=== PATIENT | female | born 1935 | race Caucasian/White ===

== ENCOUNTER 2017-04-14 12:08 | Emergency (ER) | payer MEDICARE ==
[~2017-04-14] VITALS: Ht 175.3 cm; Wt 51.0 kg
[~2017-04-14 12:08] MED LIST: ATOR20TA42 PO; CLON.5 PO; ENOX40P SQ; LEVO88TA2 PO; LORTA5 PO; METO50TA PO; OMEP20CA5 PO; PACE200T4 PO; WARF2TAB PO
[2017-04-14 12:13] VITALS: BP 134/63; PULSE 58; RESP 18; TEMP 98.8; O2SAT 92
[2017-04-14] MEDS ORDERED: WARF-58 PO (12:37)
[2017-04-14] MEDS ORDERED: AMIO200T PO (12:37)
[2017-04-14] MEDS ORDERED: WARF4TAB51 PO (12:37)
[2017-04-14] MEDS ORDERED: CLON.5 PO (12:37)
[2017-04-14] MEDS ORDERED: PRIL20TA2 PO (12:37)
[2017-04-14] MEDS ORDERED: LEVO88TA2 PO (12:37)
[2017-04-14] MEDS ORDERED: METO50TA PO (12:37)
[2017-04-14] MEDS ORDERED: HYDR-3516 PO (12:37)
[2017-04-14] MEDS ORDERED: ATOR20TA15 PO (12:37)
[2017-04-14] MEDS ORDERED: HYDR-4204 TOPICAL (12:41)
[2017-04-14] MEDS ORDERED: CLIN1CAP6 PO (12:41)
--- NOTE | 2017-04-14 12:42 | PD ---
HPI Chief Complaint: Skin Problem Time Seen by Provider: 12:10 Travel History International Travel<30 days: No Contact w/Intl Traveler<30days: No Traveled to known affect area: No History of Present Illness HPI 82-year-old female with chief complaint of rash to the left posterior back 3 weeks. She reports the rash was originally pruritic. Patient reports in the last several days areas become increasingly more painful, red, warm with small amount of drainage. The patient has history of CVA with left-sided deficit. She is cared for by her . She denies headache, fever, chills, nausea, vomiting, chest pain, shortness breath, abdominal pain. Patient reports in the past she has had dermatitis which was similar to these symptoms with the exception of the pain, redness, drainage. PFSH Past Medical History Arthritis: No Asthma: No Atrial Fibrillation: Yes Heart Rhythm Problems: No Cancer: Yes (SKIN) Cardiovascular Problems: Yes (A-FIB) High Cholesterol: No Chest Pain: No Congestive Heart Failure: No COPD: No Cerebrovascular Accident: Yes (LEFT SIDED WEAKNESS 2004) Diabetes: No GERD: No Genitourinary: No Headaches: No Hepatitis: No Hiatal Hernia: No Hypertension: Yes Kidney Stones: No Musculoskeletal: No Neurologic: Yes (STROKE) Parkinson's Disease: Yes Psychiatric: No Reproductive: No Respiratory: No Migraines: No Myocardial Infarction: No Renal Failure: No Seizures: No Sleep Apnea: No Thyroid Disease: Yes Ulcer: No Menopausal: Yes Past Surgical History Abdominal Surgery: Yes (HERNIA) Appendectomy: No Body Medical Devices: SUSAN IN FEMUR Cardiac Surgery: No Cholecystectomy: No Ear Surgery: No Endocrine Surgery: No Eye Surgery: No Genitourinary Surgery: No Gynecologic Surgery: Yes (HYSTERECTOMY) Hysterectomy: Yes Joint Replacement: Yes Oral Surgery: No Thoracic Surgery: No Other Surgery: Yes (MULTIPLE BREAST CYSTS) Social History Alcohol Use: No Tobacco Use: No Substance Use: No Allergies-Medications (Allergen,Severity, Reaction): Coded Allergies: cephalexin (Unverified Allergy, Intermediate, Rash, 04/14/17) ciprofloxacin (Unverified Allergy, Mild, 04/14/17) Reported Meds & Prescriptions Reported Meds & Active Scripts Active Ala-Vinod Topical (Hydrocortisone (Topical)) 2.5% Cream 1 Applic TOPICAL DIRECTED Clindamycin (Clindamycin HCl) 300 Mg Cap 300 Mg PO TID 7 Days Reported Warfarin 3 Mg Tab 3 Mg PO SAT,SUN Warfarin 2 Mg Tab 2 Mg PO M..,MON Prilosec (Omeprazole Magnesium) 20 Mg Tab 1 Tab PO DAILY Metoprolol Tartrate 50 Mg Tab 50 Mg PO BID Levothyroxine (Levothyroxine Sodium) 88 Mcg Tab 88 Mcg PO DAILY Hydrocodone-Acetaminophen 5-325 mg Tab 1 Tab PO Q4H PRN Atorvastatin (Atorvastatin Calcium) 20 Mg Tab 20 Mg PO HS Klonopin (Clonazepam) 0.5 Mg Tab 0.5 Mg PO HS Amiodarone (Amiodarone HCl) 200 Mg Tab 200 Mg PO DAILY Review of Systems Except as stated in HPI: all other systems reviewed are Neg General / Constitutional: No: Fever Eyes: No: Visual changes HENT: No: Headaches Cardiovascular: No: Chest Pain or Discomfort Respiratory: No: Shortness of Breath Gastrointestinal: No: Abdominal Pain Genitourinary: No: Dysuria Skin: Positive Rash Physical Exam Narrative GENERAL: Well-nourished, well-developed patient. SKIN: Diffuse area of erythema and warmth to the left posterior torso. Area is consistent with cellulitis. There is also areas consistent with dermatitis. HEAD: Normocephalic. EYES: No scleral icterus. No injection or drainage. NECK: Supple, trachea midline. No JVD or lymphadenopathy. CARDIOVASCULAR: Regular rate and rhythm without murmurs, gallops, or rubs. RESPIRATORY: Breath sounds equal bilaterally. No accessory muscle use. GASTROINTESTINAL: Abdomen soft, non-tender, nondistended. MUSCULOSKELETAL: No cyanosis, or edema. Left sided paralysis. Data Data Last Documented VS Vital Signs Date Time Temp Pulse Resp B/P (MAP) Pulse Ox O2 Delivery O2 Flow Rate FiO2 04/14/17 12:13 98.8 58 18 134/63 (86) 92 MDM Medical Decision Making Medical Screen Exam Complete: Yes Emergency Medical Condition: Yes Differential Diagnosis Cellulitis, contact dermatitis, unspecified rash Narrative Course 82-year-old female with chief complaint of rash to the left posterior back 3 weeks. Patient reports over the last several days areas become painful, warm, red with small amount of drainage. On exam patient has what is consistent with contact dermatitis with overlying cellulitis. Patient denies fever or chills. She is nontoxic-appearing. Due to patient's allergies she will be put on clindamycin. She will also be prescribed steroid cream for dermatitis. Patient is advised to follow up with primary doctor on Monday. Return precautions discussed. Patient and family verbalize understanding and agree to plan Diagnosis Primary Impression: Cellulitis Qualified Codes: L03.312 - Cellulitis of back [any part except buttock] Additional Impression: Dermatitis Referrals: Primary Care Physician Additional Instructions: Take the antibiotics as prescribed. Use the cream as prescribed. Cleansed the area daily with soap and water. Follow-up with her primary doctor for recheck on Monday. Return to the emergency department if he developed new or worsening symptoms. Scripts Hydrocortisone (Topical) (Ala-Vinod Topical) 2.5% Cream 1 APPLIC TOPICAL DIRECTED for Inflammation, #1 TUBE 0 Refills Prov: Leticia Day 04/14/17 Clindamycin (Clindamycin) 300 Mg Cap 300 MG PO TID for Infection for 7 Days, CAP 0 Refills Prov: Leticia Day 04/14/17 Disposition: 01 DISCHARGE HOME Condition: Stable Leticia Day Apr 14, 2017 12:42
== END 2017-04-14 12:58 | disposition home or self-care (01) ==
LOC: PHEFT 12:08
DX: L03.312 Cellulitis of back [any part except buttock and flank] (principal); G20 Parkinson's disease; I48.91 Unspecified atrial fibrillation
CPT/HCPCS: 99283

== ENCOUNTER 2017-07-01 12:21 | Emergency (ER) | payer MEDICARE ==
[~2017-07-01] VITALS: Ht 175.3 cm; Wt 60.0 kg
[~2017-07-01 12:21] MED LIST changes: +AMIO200T PO; +ATOR20TA15 PO; -ATOR20TA42 PO; +CLIN300C5 PO; -ENOX40P SQ; +HYDR-3516 PO; +HYDR-4204 TOPICAL; -LORTA5 PO; -OMEP20CA5 PO; -PACE200T4 PO; +PRIL20TA2 PO; +WARF-58 PO; -WARF2TAB PO; +WARF4TAB51 PO
[2017-07-01 12:45] VITALS: BP 222/86; PULSE 52; RESP 16; TEMP 97.6; O2SAT 98
--- NOTE | 2017-07-01 12:56 | PD ---
HPI Chief Complaint: Edema Time Seen by Provider: 12:54 Travel History International Travel<30 days: No Contact w/Intl Traveler<30days: No Traveled to known affect area: No History of Present Illness HPI C/O ABOUT 2 WEEKS WORTH OF SWELLING TO LLE, NOT IMPROVING OR GOING AWAY, PATIENT DENIES FEVER, REDNESS AT THIS TIME...BUT DOES NOTICE A COUGH THAT GETS WORSE WHEN SUPINE, OR FLAT ON HER BACK, AND ALSO FEELS SOB AT THAT TIME, BUT NOT AT ANY OTHER TIME. ...PATIENT IS LARGELY WHEECHAIR BOUND DUE TO STROKE ( ABOUT 7-8YRS AGO) htn, afib on coumadin, PRE[facility] Past Medical History Hx Anticoagulant Therapy: Yes (coumadin) Arthritis: No Asthma: No Atrial Fibrillation: Yes Heart Rhythm Problems: No Cancer: Yes (SKIN) Cardiovascular Problems: Yes (htn not on meds) High Cholesterol: No Chest Pain: No Congestive Heart Failure: No COPD: No Cerebrovascular Accident: Yes (cva) Diabetes: No Diminished Hearing: No GERD: No Genitourinary: No Headaches: No Hepatitis: No Hiatal Hernia: No Hypertension: Yes Kidney Stones: No Musculoskeletal: No Neurologic: Yes (STROKE) Parkinson's Disease: Yes Psychiatric: No Reproductive: No Respiratory: No Integumentary: Yes Immunizations Current: Yes Migraines: No Myocardial Infarction: No Renal Failure: No Seizures: No Sleep Apnea: No Thyroid Disease: Yes Ulcer: No ?: Not Menopausal: Yes Past Surgical History Abdominal Surgery: Yes (HERNIA) Appendectomy: No Body Medical Devices: SUSAN IN FEMUR Cardiac Surgery: No Cholecystectomy: No Ear Surgery: No Endocrine Surgery: No Eye Surgery: No Genitourinary Surgery: No Gynecologic Surgery: Yes (HYSTERECTOMY) Hysterectomy: Yes Joint Replacement: Yes Oral Surgery: No Thoracic Surgery: No Other Surgery: Yes (MULTIPLE BREAST CYSTS LYPOMA) Social History Alcohol Use: No Tobacco Use: No Substance Use: No Allergies-Medications (Allergen,Severity, Reaction): Coded Allergies: cephalexin (Unverified Allergy, Intermediate, Rash, 07/01/17) risedronate sodium (Verified Allergy, Intermediate, loose stools, 07/01/17) ciprofloxacin (Unverified Allergy, Mild, 07/01/17) Reported Meds & Prescriptions Reported Meds & Active Scripts Active Reported Warfarin 2 Mg Tab 2 Mg PO DAILY Prilosec (Omeprazole Magnesium) 20 Mg Tab 1 Tab PO DAILY Metoprolol Tartrate 50 Mg Tab 50 Mg PO BID Levothyroxine (Levothyroxine Sodium) 88 Mcg Tab 88 Mcg PO DAILY Atorvastatin (Atorvastatin Calcium) 20 Mg Tab 20 Mg PO HS Klonopin (Clonazepam) 0.5 Mg Tab 0.5 Mg PO HS Amiodarone (Amiodarone HCl) 200 Mg Tab 200 Mg PO DAILY Review of Systems Except as stated in HPI: all other systems reviewed are Neg General / Constitutional: No: Fever Eyes: No: Visual changes HENT: No: Headaches Cardiovascular: Positive: Edema Respiratory: No: Shortness of Breath Gastrointestinal: No: Abdominal Pain Genitourinary: No: Dysuria Musculoskeletal: No: Pain Skin: No Rash Neurologic: No: Weakness Psychiatric: No: Depression Endocrine: No: Polydipsia Hematologic/Lymphatic: No: Easy Bruising Physical Exam Narrative GENERAL: SKIN: Warm and dry. HEAD: Atraumatic. Normocephalic. EYES: Pupils equal and round. No scleral icterus. No injection or drainage. ENT: No nasal bleeding or discharge. Mucous membranes pink and moist. NECK: Trachea midline. No JVD. CARDIOVASCULAR: Regular rate and rhythm. RESPIRATORY: No accessory muscle use. Clear to auscultation. Breath sounds equal bilaterally. GASTROINTESTINAL: Abdomen soft, non-tender, nondistended. Hepatic and splenic margins not palpable. MUSCULOSKELETAL: Extremities without clubbing, cyanosis, LLE EDEMA 2+, DORSUM OF FOOT HAS MOST NOTICEABLE EDEMA. No obvious deformities. NEUROLOGICAL: Awake and alert. No obvious cranial nerve deficits. Motor grossly within normal limits. Five out of 5 muscle strength in the arms and legs. Normal speech. PSYCHIATRIC: Appropriate mood and affect; insight and judgment normal. Data Data Last Documented VS Vital Signs Date Time Temp Pulse Resp B/P (MAP) Pulse Ox O2 Delivery O2 Flow Rate FiO2 07/01/17 13:42 50 18 207/75 (119) 98 Room Air 07/01/17 12:45 97.6 Orders Orders Foot, Complete ([id number]) (07/01/17 ) Complete Blood Count With Diff (07/01/17 13:13) Comprehensive Metabolic Panel (07/01/17 13:13) B-Type Natriuretic Peptide (07/01/17 13:13) Act Partial Throm Time (Ptt) (07/01/17 13:13) Prothrombin Time / Inr (Pt) (07/01/17 13:13) Troponin I (07/01/17 13:13) Iv Access Insert/Monitor (07/01/17 13:13) Electrocardiogram (07/01/17 13:13) Ecg Monitoring (07/01/17 13:13) Oximetry (07/01/17 13:13) Oxygen Administration (07/01/17 13:13) Chest, Single Ap (07/01/17 13:13) Us Leg Venous Doppler (07/01/17 13:13) Sodium Chloride 0.9% Flush (Ns Flush) (07/01/17 13:15) Clonidine (Catapres) (07/01/17 14:00) Furosemide Inj (Lasix Inj) (07/01/17 14:45) Ed Discharge Order (07/01/17 14:42) Labs Laboratory Tests Test 07/01/17 13:15 White Blood Count 6.5 TH/MM3 Red Blood Count 4.09 MIL/MM3 Hemoglobin 12.1 GM/DL Hematocrit 37.4 % Mean Corpuscular Volume 91.5 FL Mean Corpuscular Hemoglobin 29.6 PG Mean Corpuscular Hemoglobin Concent 32.3 % Red Cell Distribution Width 13.2 % Platelet Count 224 TH/MM3 Mean Platelet Volume 8.0 FL Neutrophils (%) (Auto) 60.8 % Lymphocytes (%) (Auto) 24.1 % Monocytes (%) (Auto) 8.7 % Eosinophils (%) (Auto) 5.8 % Basophils (%) (Auto) 0.6 % Neutrophils # (Auto) 3.9 TH/MM3 Lymphocytes # (Auto) 1.6 TH/MM3 Monocytes # (Auto) 0.6 TH/MM3 Eosinophils # (Auto) 0.4 TH/MM3 Basophils # (Auto) 0.0 TH/MM3 CBC Comment DIFF FINAL Differential Comment Prothrombin Time 24.2 SEC Prothromb Time International Ratio 2.4 RATIO Activated Partial Thromboplast Time 32.4 SEC Blood Urea Nitrogen 38 MG/DL Creatinine 0.96 MG/DL Random Glucose 81 MG/DL Total Protein 6.5 GM/DL Albumin 2.8 GM/DL Calcium Level 8.0 MG/DL Alkaline Phosphatase 74 U/L Aspartate Amino Transf (AST/SGOT) 24 U/L Alanine Aminotransferase (ALT/SGPT) 30 U/L Total Bilirubin 0.3 MG/DL Sodium Level 146 MEQ/L Potassium Level 4.1 MEQ/L Chloride Level 113 MEQ/L Carbon Dioxide Level 26.5 MEQ/L Anion Gap 7 MEQ/L Estimat Glomerular Filtration Rate 55 ML/MIN Troponin I LESS THAN 0.02 NG/ML B-Type Natriuretic Peptide 130 PG/ML MDM Medical Decision Making Medical Screen Exam Complete: Yes Emergency Medical Condition: Yes Medical Record Reviewed: Yes Interpretation(s) EKG: SINUS HOMER 50, FIRST DEGREE AV BLOCK, NONSPECIFIC STT CHANGES, NO STEMI PATTERN Differential Diagnosis DVT V FRACTURE V DISLOCATION V CHF V RENAL FAILURE Narrative Course CHEST XRAY SUGGESTS CARDIOMEGALY, BUT NO PULMONARY EDEMA/PNA/PTX....ULTRS NEG FOR DVT....XRAY DID NOT REVEAL ANY FX/DISLOCATIONS....NEG TROPONIN, NORMAL CREATININE, MILD GFR ABNL, NOT ENOUGH TO SUGGEST KIDNEY FAILURE...AND BNP WAS NOT GREATLY ELEVATED TO SUGGEST ACTIVE CHF HOWEVER THAT SHOULD BE SCREENED BY PCP. Diagnosis Primary Impression: Edema, peripheral Referrals: Jessica Chowdhury MD FOR FURTHER EVALUATION OF POSSIBLE CONGESTIVE HEART FAILURE. Patient Instructions: General Instructions, Leg Edema (ED) Disposition: 01 DISCHARGE HOME Condition: Stable Masood Montero MD Jul 01, 2017 12:56
[2017-07-01] MEDS ORDERED: SODIUM CHLORIDE 0.9% FLUSH 10 ML FLUSH IVF PRN (13:15)
[2017-07-01 13:26] LABS: AUTOMATED NEUTROPHIL # 3.9 TH/MM3 (1.8-7.7); BASOPHIL % 0.6 % (0.0-2.0); EOSINOPHIL # 0.4 TH/MM3 (0-0.4); EOSINOPHIL % 5.8 % (0.0-4.0); HEMATOCRIT 37.4 % (35.0-46.0); HEMO FLAGS DIFF FINAL; LYMPH % 24.1 % (9.0-44.0); LYMPHOCYTE # 1.6 TH/MM3 (1.0-4.8); MEAN CELL VOLUME 91.5 FL (80.0-100.0); MEAN CORPUSCULAR HEMOGLOBIN 29.6 PG (27.0-34.0); MEAN CORPUSCULAR HGB CONC 32.3 % (32.0-36.0); MONO % 8.7 % (0.0-8.0); NEUT % 60.8 % (16.0-70.0); PLATELET COUNT 224 TH/MM3 (150-450); RED BLOOD COUNT 4.09 MIL/MM3 (4.00-5.30); RED CELL DISTRIBUTION WIDTH 13.2 % (11.6-17.2); WHITE BLOOD COUNT 6.5 TH/MM3 (4.0-11.0)
[2017-07-01 13:32] LABS: CHLORIDE 113 MEQ/L (98-107); POTASSIUM 4.1 MEQ/L (3.5-5.1); SODIUM (NA) 146 MEQ/L (136-145)
[2017-07-01 13:33] VITALS: O2SAT 97
[2017-07-01 13:36] LABS: ANION GAP 7 MEQ/L (5-15); BICARBONATE 26.5 MEQ/L (21.0-32.0); BLOOD UREA NITROGEN 38 MG/DL (7-18)
[2017-07-01 13:37] LABS: APTT (PATIENT) 32.4 SEC (24.3-30.1); INTERNATIONAL NORMALIZED RATIO 2.4 RATIO; PROTHROMBIN TIME - PATIENT 24.2 SEC (9.8-11.6)
[2017-07-01 13:38] LABS: ALT (GPT) 30 U/L (10-53)
[2017-07-01 13:39] LABS: AST (GOT) 24 U/L (15-37); GLOMERULAR FILTRATION RATE 55 ML/MIN (>89)
[2017-07-01 13:40] LABS: TOTAL BILIRUBIN ADULT 0.3 MG/DL (0.2-1.0)
[2017-07-01 13:42] VITALS: BP 207/75; PULSE 50; RESP 18; O2SAT 98
[2017-07-01 13:42] LABS: ALKALINE PHOSPHATASE 74 U/L (45-117)
--- NOTE | 2017-07-01 13:56 | RADRPT ---
EXAM DATE/TIME: 07/01/2017 13:27 [facility] COMPARISON: No previous studies available for comparison. INDICATIONS : Cough, left foot swelling MEDICAL HISTORY : Stroke. SURGICAL HISTORY : None. ENCOUNTER: Initial ACUITY: 3 days PAIN SCORE: 0/10 LOCATION: Bilateral chest FINDINGS: A single view of the chest demonstrates the lungs to be symmetrically aerated without evidence of mas s, infiltrate or effusion. There is some mild chronic interstitial changes bilaterally. The heart si ze is mildly enlarged.. There is some chronic compression of T11. There are degenerative changes of t he thoracic spine with curvature to the left. CONCLUSION: No acute disease. Mild compensated cardiomegaly. Ziggy Perez MD on July 01, 2017 at 13:53 Board Certified Radiologist. This report was verified electronically.
--- NOTE | 2017-07-01 13:57 | RADRPT ---
EXAM DATE/TIME: 07/01/2017 13:31 [facility] COMPARISON: No previous studies available for comparison. INDICATIONS : Left foot swelling for 3 days. MEDICAL HISTORY : Stroke. SURGICAL HISTORY : None. ENCOUNTER: Initial ACUITY: 3 days PAIN SCORE: 0/10 LOCATION: Left foot FINDINGS: There is diffuse osteopenia of the bony structures. No acute fracture or joint dislocation is demonst rated. There are some mild degenerative changes at the first metatarsophalangeal joint. There is diff use nonspecific soft tissue swelling along the mid dorsum of the foot. Vascular calcifications are de monstrated. CONCLUSION: Diffuse nonspecific soft tissue swelling around the midfoot. No acute fracture or joint dislocation. Ziggy Perez MD on July 01, 2017 at 13:54 Board Certified Radiologist. This report was verified electronically.
[2017-07-01] MEDS ORDERED: cloNIDine HCL 0.1 MG TAB PO ONE (14:00)
--- NOTE | 2017-07-01 14:34 | RADRPT ---
EXAM DATE/TIME: 07/01/2017 14:09 [facility] COMPARISON: No previous studies available for comparison. INDICATIONS : Left leg swelling. MEDICAL HISTORY : Stroke. Parkinson's. Hypertension. Thyroid disease. Anticoagulant therapy. Atrial fibrillation. He rnia. SURGICAL HISTORY : Hysterectomy. Hernia repair. Left leg fabiola. Breast cysts removed. ENCOUNTER: Initial ACUITY: 1 day PAIN SCORE: 1/10 LOCATION: Left leg. TECHNIQUE: Venous ultrasound of the leg was performed from the inguinal ligament to the proximal calf. Real-marc e, color Doppler and spectral tracing, compression and augmentation techniques were used. FINDINGS: There is normal compressibility of the deep venous system from the inguinal region to the proximal ca lf. No echogenic clot is seen in the lumen of the common femoral, femoral, popliteal, and posterior tibial veins. There is a normal response of the venous system to proximal and distal augmentation an d respiration. CONCLUSION: No evidence of DVT. Ziggy Perez MD on July 01, 2017 at 14:32 Board Certified Radiologist. This report was verified electronically.
[2017-07-01] MEDS ORDERED: FUROSEMIDE 20 MG/2 ML VIAL IV PUSH ONE (14:45)
[2017-07-01 15:05] VITALS: BP 167/59; PULSE 50; RESP 18; O2SAT 97
[2017-07-01 16:03] VITALS: BP 137/51
--- NOTE | 2017-07-02 13:10 | EKG ---
Date Performed: 07/01/2017 Time Performed: 13:23:44 PTAGE: 82 years EKG: SINUS BRADYCARDIA WITH FIRST DEGREE AV BLOCK NONSPECIFIC ST & T-WAVE ABNORMALITY ABNORMAL E CG Compared to PREVIOUS TRACING , OK interval appears to be more prolonged. The previous P-waves were di fficult to see due to a lot of baseline artifact. PREVIOUS TRACIN11/16/2013 14.36 DOCTOR: Paulo Ball Interpretating Date/Time 07/02/2017 13:09:23
== END 2017-07-01 16:05 | disposition home or self-care (01) ==
LOC: PHED 12:21
DX: R60.0 Localized edema (principal); R94.31 Abnormal electrocardiogram [ECG] [EKG]; R05 Cough; R06.02 Shortness of breath; I48.91 Unspecified atrial fibrillation; I10 Essential (primary) hypertension; E07.9 Disorder of thyroid, unspecified; G20 Parkinson's disease; I63.9 Cerebral infarction, unspecified; Z79.01 Long term (current) use of anticoagulants; Z85.828 Personal history of other malignant neoplasm of skin
CPT/HCPCS: 71010; 73630; 80053; 83880; 84484; 85025; 85610; 85730; 93005; 93971; 96372; 99285; J1940